=== PATIENT | female | born 1940 | race Caucasian/White ===

== ENCOUNTER 2020-09-03 16:26 | Inpatient (IN) | payer MEDICARE ==
[2020-09-03 17:21] LABS: Bacteria/HPF 2+ HPF (None Seen); Bilirubin Negative (Negative); Blood, Urine 2+ (Negative); Clarity Extra Turbid (Clear); Glucose, Urine (Dipstick) Normal (Negative); Ketone, Urine Negative (Negative); Leukocyte 500 Leu/uL (Negative); Nitrite Negative (Negative); Protein, Urine (Dipstick) 300 mg/dL (Neg-Trace); RBC/HPF None Seen HPF (0-3); Specific Gravity, Urine 1.009 (1.002-1.036); Urobilinogen Normal mg/dL (Less than 2); WBC/HPF Greater than 50 HPF (0-3); pH, Urine 5.5 (5.0-9.0)
[2020-09-03 18:00] LABS: Hemoglobin 11.3 g/dL (12.0-16.0); Mean Corpuscular HGB CONC 33.7 g/dL (32.0-36.0); Mean Corpuscular Hemoglobin 33.8 pg (27.0-31.0); Platelet Count 217 thou/uL (130-400); RBC Distribution Width 12.7 % (11.5-14.5); Red Blood Cell (RBC) Count 3.34 mill/uL (4.20-5.40); White Blood Cell (WBC) Count 23.3 thou/uL (4.8-10.8)
[2020-09-03 18:20] LABS: Band 9 % (5-11); Lymphocytes 4 % (21-51); MDiff Complete? YES; Macrocytosis SLIGHT = 6-15 cells (100X) (0-5/hpf); Monocytes 9 % (0-10); Neutrophil 77 % (42-75); Platelet Morphology Comment Appears Adequate; Reactive Lymphocytes 1 % (0-10)
[2020-09-03 18:22] LABS: ALT (SGPT) 11 U/L (8-55); AST (SGOT) 12 U/L (5-34); Albumin 3.4 g/dL (3.4-4.8); Alkaline Phosphatase 71 U/L (40-110); Anion Gap 17 mmol/L (10-20); BUN (Urea Nitrogen) 102 mg/dL (9.8-20.1); Bilirubin, Total 0.4 mg/dL (0.2-1.2); Calc. Creatinine Clearance 0 mL/min (70-130); Calcium 8.6 mg/dL (7.8-10.44); Carbon Dioxide 28 mmol/L (23-31); Chloride 87 mmol/L (98-107); Globulin 4.1 g/dL (2.4-3.5); Glucose 152 mg/dL (83-110); Potassium 3.1 mmol/L (3.5-5.1); Protein, Total 7.5 g/dL (5.8-8.1); Sodium 129 mmol/L (136-145)
[2020-09-03] MEDS ORDERED: cefTRIAXone\\ROCEPHIN 2 GM VIAL ONE ×2 (18:26→18:27)
[2020-09-03] MEDS ORDERED: Aspirin 300 MG Suppository ONE (18:26)
[2020-09-03 18:35] LABS: INR-International Normal Ratio 1.1; Prothrombin Time 14.7 sec (12.0-14.7)
[2020-09-03 18:36] LABS: PTT 30.2 sec (22.9-36.1)
[2020-09-03 18:42] LABS: CKMB 1.4 ng/mL (0-6.6)
[2020-09-03] MEDS ORDERED: Dextrose 5% in Water 1,000 ML IV PRN (21:37)
[2020-09-03] MEDS ORDERED: Dextrose 50% Abboject 50 ML SYRINGE SLOW IVP PRN (21:37)
[2020-09-03] MEDS ORDERED: HumaLOG 300 UNITS/3 ML VIAL SC PRN (21:37)
[2020-09-03] MEDS ORDERED: Nystatin Powder 15 GM BOT TOP PRN (22:22)
[2020-09-03] MEDS ORDERED: Guaifenesin DM 100-10/5 ML UDCUP PO PRN (22:34)
[2020-09-03] MEDS ORDERED: Ondansetron ODT 4 MG TAB PO PRN (22:34)
[2020-09-03] MEDS ORDERED: Acetaminophen 650 MG Suppository PR PRN (22:34)
[2020-09-03 23:16] LABS: Troponin I 0.039 ng/mL (< 0.028)
[2020-09-03 23:37] VITALS: BMI 36.2
[2020-09-04 02:33] LABS: #Lymphocytes 1.4 thou/uL (1.20-3.40); #Monocytes 1.3 thou/uL (0.11-0.59); #Neutrophils 17.9 thou/uL (1.40-6.50); %Monocytes 6.2 % (0.0-10.0); %Neutrophils 86.8 % (42.0-75.0); Hemoglobin 10.9 g/dL (12.0-16.0); Mean Corpuscular HGB CONC 35.3 g/dL (32.0-36.0); Mean Corpuscular Hemoglobin 35.8 pg (27.0-31.0); Mean Platelet Volume 8.3 fL (7.4-10.4); Platelet Count 196 thou/uL (130-400); RBC Distribution Width 12.8 % (11.5-14.5); Red Blood Cell (RBC) Count 3.04 mill/uL (4.20-5.40); White Blood Cell (WBC) Count 20.6 thou/uL (4.8-10.8)
[2020-09-04 02:56] LABS: Troponin I 0.035 ng/mL (< 0.028)
[2020-09-04 02:57] LABS: Anion Gap 21 mmol/L (10-20); BUN (Urea Nitrogen) 94 mg/dL (9.8-20.1); Calc. Creatinine Clearance 28 mL/min (70-130); Calcium 8.6 mg/dL (7.8-10.44); Carbon Dioxide 22 mmol/L (23-31); Cardiac Risk 4.3 (Less than 4.5); Chloride 90 mmol/L (98-107); Cholesterol 150 mg/dl (< 200 Desired); Glucose 167 mg/dL (83-110); HDL Cholesterol 35 mg/dL (>60 Neg Risk); LDL Cholesterol, Calculated 97 mg/dL; Sodium 130 mmol/L (136-145); Triglycerides 92 mg/dL (Less than 150)
[2020-09-04 03:22] LABS: Potassium 2.5 mmol/L (3.5-5.1)
[2020-09-04] MEDS ORDERED: Electrolyte Replacement Protocol 1 EACH FS PRN ×2 (03:30→03:40)
[2020-09-04] MEDS: Sodium Chloride 0.9% 1,000 ML IV SCH ×2 (03:48→08:45)
[2020-09-04] MEDS: Potassium Chloride 40 MEQ in Sodium Chloride 0.9% 250 ML 250 ML IVPB SCH ×2 (03:59→08:39)
[2020-09-04] MEDS: Levothyroxine Sodium 25 MCG TAB PO SCH (04:24)
[2020-09-04] MEDS: Acetaminophen 325 MG TAB PO PRN ×2 (04:26→11:53)
[2020-09-04] MEDS: Famotidine 20 MG TAB PO SCH (08:38)
[2020-09-04] MEDS: FLUoxetine HCl 20 MG CAP PO SCH (08:38)
[2020-09-04] MEDS: Aspirin Chewable 81 MG TAB PO SCH (08:38)
[2020-09-04] MEDS: Trospium 20 MG TAB PO SCH (08:39)
[2020-09-04] MEDS: Enoxaparin Sodium 30 MG/0.3 ML SYRINGE SC SCH (08:39)
[2020-09-04] MEDS: Primidone 50 MG TAB PO SCH ×2 (08:40→21:18)
[2020-09-04 08:44] LABS: SARS-CoV-2 PCR by NAA Not Detected (NotDetected)
[2020-09-04] MEDS ORDERED: TOPIRAMATE 100 MG PO SCH (09:00)
[2020-09-04] MEDS: Ondansetron PF 4 MG/2 ML Vial IVP PRN (11:52)
[2020-09-04 14:37] LABS: Anion Gap 18 mmol/L (10-20); BUN (Urea Nitrogen) 94 mg/dL (9.8-20.1); Calc. Creatinine Clearance 30 mL/min (70-130); Calcium 8.5 mg/dL (7.8-10.44); Carbon Dioxide 22 mmol/L (23-31); Chloride 95 mmol/L (98-107); Glucose 165 mg/dL (83-110); Potassium 3.6 mmol/L (3.5-5.1); Sodium 131 mmol/L (136-145)
[2020-09-04] MEDS: HumaLOG 300 UNITS/3 ML VIAL SC PRN (17:29)
[2020-09-04] MEDS: cefTRIAXone\\ROCEPHIN 1 GM in Sodium Chloride 0.9% 100 ML IVPB SCH (17:29)
[2020-09-04] MEDS: Simvastatin 40 MG TAB PO SCH (21:17)
[2020-09-05 05:04] LABS: #Eosinphils 0.1 thou/uL (0.0-0.7); #Lymphocytes 1.4 thou/uL (1.20-3.40); #Monocytes 1.1 thou/uL (0.11-0.59); #Neutrophils 12.7 thou/uL (1.40-6.50); %Basophils 0.3 % (0.0-1.0); %Eosinophils 0.4 % (0.0-10.0); %Lymphocytes 8.8 % (21.0-51.0); %Monocytes 7.3 % (0.0-10.0); %Neutrophils 83.3 % (42.0-75.0); Hemoglobin 10.2 g/dL (12.0-16.0); Mean Corpuscular Hemoglobin 34.2 pg (27.0-31.0); Mean Platelet Volume 8.7 fL (7.4-10.4); Platelet Count 210 thou/uL (130-400); RBC Distribution Width 12.7 % (11.5-14.5); Red Blood Cell (RBC) Count 2.97 mill/uL (4.20-5.40); White Blood Cell (WBC) Count 15.3 thou/uL (4.8-10.8)
[2020-09-05 05:24] LABS: Anion Gap 17 mmol/L (10-20); BUN (Urea Nitrogen) 87 mg/dL (9.8-20.1); Calc. Creatinine Clearance 37 mL/min (70-130); Calcium 8.7 mg/dL (7.8-10.44); Carbon Dioxide 23 mmol/L (23-31); Chloride 96 mmol/L (98-107); Glucose 153 mg/dL (83-110); Potassium 3.6 mmol/L (3.5-5.1); Sodium 132 mmol/L (136-145)
[2020-09-05] MEDS: Levothyroxine Sodium 25 MCG TAB PO SCH (05:44)
[2020-09-05] MEDS: HumaLOG 300 UNITS/3 ML VIAL SC PRN (05:58)
[2020-09-05] MEDS: Sodium Chloride 0.9% 1,000 ML IV SCH ×2 (07:33→21:21)
[2020-09-05] MEDS: Aspirin Chewable 81 MG TAB PO SCH (09:45)
[2020-09-05] MEDS: FLUoxetine HCl 20 MG CAP PO SCH (09:45)
[2020-09-05] MEDS: Famotidine 20 MG TAB PO SCH (09:45)
[2020-09-05] MEDS: Trospium 20 MG TAB PO SCH (09:46)
[2020-09-05] MEDS: Primidone 50 MG TAB PO SCH ×2 (09:46→21:21)
[2020-09-05] MEDS: HYDROcodone/Acetaminophen 5/325 mg Tablet PO PRN ×2 (09:49→16:54)
[2020-09-05] MEDS: Enoxaparin Sodium 30 MG/0.3 ML SYRINGE SC SCH (09:51)
[2020-09-05] MEDS: Morphine 2 MG/ML VIAL SLOW IVP PRN (12:29)
[2020-09-05] MEDS: Gabapentin 100 MG CAP PO SCH ×2 (16:54→21:21)
[2020-09-05] MEDS: cefTRIAXone\\ROCEPHIN 1 GM in Sodium Chloride 0.9% 100 ML IVPB SCH (19:38)
[2020-09-05] MEDS: tiZANidine HCl 4 MG TAB PO SCH (21:22)
[2020-09-05] MEDS: Simvastatin 40 MG TAB PO SCH (21:22)
[2020-09-06] MEDS: Levothyroxine Sodium 25 MCG TAB PO SCH (06:21)
[2020-09-06] MEDS: HumaLOG 300 UNITS/3 ML VIAL SC PRN ×2 (06:37→11:07)
[2020-09-06] MEDS: Ondansetron PF 4 MG/2 ML Vial IVP PRN (07:46)
[2020-09-06] MEDS: Primidone 50 MG TAB PO SCH ×2 (08:46→20:47)
[2020-09-06] MEDS: Famotidine 20 MG TAB PO SCH (08:47)
[2020-09-06] MEDS: Trospium 20 MG TAB PO SCH (08:47)
[2020-09-06] MEDS: Aspirin Chewable 81 MG TAB PO SCH (08:47)
[2020-09-06] MEDS: Gabapentin 100 MG CAP PO SCH ×3 (08:47→20:46)
[2020-09-06] MEDS: Enoxaparin Sodium 30 MG/0.3 ML SYRINGE SC SCH (08:48)
[2020-09-06] MEDS: FLUoxetine HCl 20 MG CAP PO SCH (08:48)
[2020-09-06] MEDS: Sodium Chloride 0.9% 1,000 ML IV SCH (10:13)
[2020-09-06] MEDS ORDERED: Lidocaine 1% (PF) 30 ML VIAL ONE (17:04)
[2020-09-06] MEDS: cefTRIAXone\\ROCEPHIN 1 GM in Sodium Chloride 0.9% 100 ML IVPB SCH (18:36)
[2020-09-06 20:01] LABS: RBC Count-Automated (BF) 80909 /cu.mm; WBC/Nucleated-Auto (BF) 8584 uL
[2020-09-06 20:23] LABS: BF Color Red; Body Fluid Source Synovial Fluid; Clarity Cloudy/Turbid (Clear); Tube # EDTA
[2020-09-06 20:25] LABS: BF Segmented Neutrophils 80 %; Cell Count Non Hematic 19 %; Lymphocytes 1 %
[2020-09-06] MEDS: Simvastatin 40 MG TAB PO SCH (20:48)
[2020-09-06] MEDS: tiZANidine HCl 4 MG TAB PO SCH (20:48)
[2020-09-06] MEDS: HYDROcodone/Acetaminophen 5/325 mg Tablet PO PRN (21:04)
[2020-09-07] MEDS: Sodium Chloride 0.9% 1,000 ML IV SCH ×2 (00:35→11:10)
[2020-09-07] MEDS: Acetaminophen 325 MG TAB PO PRN (00:35)
[2020-09-07 04:41] LABS: #Eosinphils 0.2 thou/uL (0.0-0.7); #Lymphocytes 1.7 thou/uL (1.20-3.40); #Monocytes 1.5 thou/uL (0.11-0.59); #Neutrophils 8.4 thou/uL (1.40-6.50); %Basophils 0.2 % (0.0-1.0); %Eosinophils 1.3 % (0.0-10.0); %Lymphocytes 14.5 % (21.0-51.0); %Monocytes 12.8 % (0.0-10.0); %Neutrophils 71.2 % (42.0-75.0); Mean Corpuscular HGB CONC 32.8 g/dL (32.0-36.0); Mean Corpuscular Hemoglobin 34.6 pg (27.0-31.0); Mean Platelet Volume 7.9 fL (7.4-10.4); Platelet Count 247 thou/uL (130-400); RBC Distribution Width 12.7 % (11.5-14.5); Red Blood Cell (RBC) Count 2.91 mill/uL (4.20-5.40); White Blood Cell (WBC) Count 11.8 thou/uL (4.8-10.8)
[2020-09-07 04:57] LABS: Anion Gap 12 mmol/L (10-20); BUN (Urea Nitrogen) 44 mg/dL (9.8-20.1); Calc. Creatinine Clearance 68 mL/min (70-130); Calcium 8.5 mg/dL (7.8-10.44); Carbon Dioxide 26 mmol/L (23-31); Chloride 101 mmol/L (98-107); Glucose 153 mg/dL (83-110); Potassium 3.3 mmol/L (3.5-5.1); Sodium 136 mmol/L (136-145)
[2020-09-07] MEDS: Levothyroxine Sodium 25 MCG TAB PO SCH (06:12)
[2020-09-07] MEDS: HYDROcodone/Acetaminophen 5/325 mg Tablet PO PRN ×2 (07:26→18:17)
[2020-09-07] MEDS: Enoxaparin Sodium 30 MG/0.3 ML SYRINGE SC SCH (08:35)
[2020-09-07] MEDS: Aspirin Chewable 81 MG TAB PO SCH (08:35)
[2020-09-07] MEDS: FLUoxetine HCl 20 MG CAP PO SCH (08:35)
[2020-09-07] MEDS: Trospium 20 MG TAB PO SCH (08:36)
[2020-09-07] MEDS: Famotidine 20 MG TAB PO SCH (08:36)
[2020-09-07] MEDS: Gabapentin 100 MG CAP PO SCH ×3 (08:36→20:36)
[2020-09-07] MEDS: Primidone 50 MG TAB PO SCH ×2 (08:36→20:37)
[2020-09-07] MEDS: Morphine 2 MG/ML VIAL SLOW IVP PRN (11:10)
[2020-09-07] MEDS: HumaLOG 300 UNITS/3 ML VIAL SC PRN (11:11)
[2020-09-07] MEDS: cefTRIAXone\\ROCEPHIN 1 GM in Sodium Chloride 0.9% 100 ML IVPB SCH (18:17)
[2020-09-07] MEDS: tiZANidine HCl 4 MG TAB PO SCH (20:36)
[2020-09-07] MEDS: Simvastatin 40 MG TAB PO SCH (20:37)
[2020-09-08] MEDS: Sodium Chloride 0.9% 1,000 ML IV SCH (02:17)
[2020-09-08 04:51] LABS: #Eosinphils 0.4 thou/uL (0.0-0.7); #Lymphocytes 1.7 thou/uL (1.20-3.40); #Monocytes 1.4 thou/uL (0.11-0.59); %Basophils 0.2 % (0.0-1.0); %Eosinophils 4.2 % (0.0-10.0); %Lymphocytes 15.7 % (21.0-51.0); %Monocytes 13.5 % (0.0-10.0); %Neutrophils 66.4 % (42.0-75.0); Hemoglobin 9.5 g/dL (12.0-16.0); Mean Corpuscular HGB CONC 32.8 g/dL (32.0-36.0); Platelet Count 257 thou/uL (130-400); RBC Distribution Width 12.6 % (11.5-14.5); Red Blood Cell (RBC) Count 2.81 mill/uL (4.20-5.40); White Blood Cell (WBC) Count 10.5 thou/uL (4.8-10.8)
[2020-09-08 05:14] LABS: Anion Gap 14 mmol/L (10-20); BUN (Urea Nitrogen) 28 mg/dL (9.8-20.1); Calc. Creatinine Clearance 95 mL/min (70-130); Calcium 8.4 mg/dL (7.8-10.44); Carbon Dioxide 25 mmol/L (23-31); Chloride 101 mmol/L (98-107); Glucose 132 mg/dL (83-110); Potassium 3.5 mmol/L (3.5-5.1); Sodium 136 mmol/L (136-145)
[2020-09-08] MEDS: Levothyroxine Sodium 25 MCG TAB PO SCH (05:18)
[2020-09-08] MEDS: HYDROcodone/Acetaminophen 5/325 mg Tablet PO PRN ×3 (05:20→17:52)
[2020-09-08] MEDS: Aspirin Chewable 81 MG TAB PO SCH (10:38)
[2020-09-08] MEDS: Famotidine 20 MG TAB PO SCH (10:38)
[2020-09-08] MEDS: Enoxaparin Sodium 30 MG/0.3 ML SYRINGE SC SCH (10:38)
[2020-09-08] MEDS: Gabapentin 100 MG CAP PO SCH ×3 (10:39→20:51)
[2020-09-08] MEDS: FLUoxetine HCl 20 MG CAP PO SCH (10:39)
[2020-09-08] MEDS: Primidone 50 MG TAB PO SCH ×2 (10:42→20:51)
[2020-09-08] MEDS: Trospium 20 MG TAB PO SCH (10:42)
[2020-09-08] MEDS: Senokot S 8.6-50 MG TAB PO PRN (11:45)
[2020-09-08] MEDS: Bisacodyl 10 MG SUPP PR PRN (16:26)
[2020-09-08] MEDS: Simvastatin 40 MG TAB PO SCH (20:51)
[2020-09-08] MEDS: Ciprofloxacin 500 MG TAB PO SCH (20:51)
[2020-09-08] MEDS: tiZANidine HCl 4 MG TAB PO SCH (21:03)
[2020-09-09] MEDS: Ciprofloxacin 500 MG TAB PO SCH ×2 (05:59→20:36)
[2020-09-09] MEDS: Levothyroxine Sodium 25 MCG TAB PO SCH (05:59)
[2020-09-09] MEDS: Gabapentin 100 MG CAP PO SCH ×3 (08:24→20:37)
[2020-09-09] MEDS: Famotidine 20 MG TAB PO SCH (08:26)
[2020-09-09] MEDS: Trospium 20 MG TAB PO SCH (08:26)
[2020-09-09] MEDS: FLUoxetine HCl 20 MG CAP PO SCH (08:26)
[2020-09-09] MEDS: Aspirin Chewable 81 MG TAB PO SCH (08:26)
[2020-09-09] MEDS: Enoxaparin Sodium 30 MG/0.3 ML SYRINGE SC SCH (08:27)
[2020-09-09] MEDS: Primidone 50 MG TAB PO SCH ×2 (10:01→20:38)
[2020-09-09] MEDS: HYDROcodone/Acetaminophen 5/325 mg Tablet PO PRN (13:40)
[2020-09-09] MEDS ORDERED: Furosemide 40 MG TAB PO SCH (19:00)
[2020-09-09] MEDS ORDERED: Losartan 25 MG TAB PO SCH (19:00)
[2020-09-09] MEDS: tiZANidine HCl 4 MG TAB PO SCH (20:36)
[2020-09-09] MEDS: hydrALAZINE 25 MG TAB PO SCH (20:36)
[2020-09-09] MEDS: Simvastatin 40 MG TAB PO SCH (20:38)
[2020-09-10] MEDS: Senokot S 8.6-50 MG TAB PO PRN ×2 (05:42→20:55)
[2020-09-10] MEDS: Levothyroxine Sodium 25 MCG TAB PO SCH (05:42)
[2020-09-10] MEDS: Ciprofloxacin 500 MG TAB PO SCH ×2 (05:42→20:39)
[2020-09-10] MEDS: Losartan 25 MG TAB PO SCH (07:55)
[2020-09-10] MEDS: FLUoxetine HCl 20 MG CAP PO SCH (07:56)
[2020-09-10] MEDS: Trospium 20 MG TAB PO SCH (07:56)
[2020-09-10] MEDS: Amlodipine 10 MG TAB PO SCH (07:57)
[2020-09-10] MEDS: Famotidine 20 MG TAB PO SCH (07:57)
[2020-09-10] MEDS: Gabapentin 100 MG CAP PO SCH ×3 (07:57→20:38)
[2020-09-10] MEDS: hydrALAZINE 25 MG TAB PO SCH ×3 (07:58→20:39)
[2020-09-10] MEDS: Enoxaparin Sodium 30 MG/0.3 ML SYRINGE SC SCH (07:58)
[2020-09-10] MEDS: Aspirin Chewable 81 MG TAB PO SCH (07:58)
[2020-09-10] MEDS ORDERED: Furosemide 80 MG TAB PO SCH (09:00)
[2020-09-10] MEDS ORDERED: Mag-Al 1200 mg/1200 mg/30 ML UDCUP PO PRN (09:40)
[2020-09-10] MEDS ORDERED: Mag-Al 1200 mg/1200 mg/30 ML UDCUP PO SCH (09:45)
[2020-09-10] MEDS: Primidone 50 MG TAB PO SCH ×2 (10:01→20:37)
[2020-09-10] MEDS: Furosemide 40 MG TAB PO SCH (10:01)
[2020-09-10] MEDS: HYDROcodone/Acetaminophen 5/325 mg Tablet PO PRN ×2 (13:45→20:40)
[2020-09-10] MEDS: tiZANidine HCl 4 MG TAB PO SCH (20:36)
[2020-09-10] MEDS: Simvastatin 40 MG TAB PO SCH (20:55)
[2020-09-10] MEDS: Morphine 2 MG/ML VIAL SLOW IVP PRN (22:52)
[2020-09-11] MEDS: Ciprofloxacin 500 MG TAB PO SCH ×2 (06:05→21:58)
[2020-09-11] MEDS: Levothyroxine Sodium 25 MCG TAB PO SCH (06:05)
[2020-09-11] MEDS: Bisacodyl 10 MG SUPP PR PRN (06:11)
[2020-09-11] MEDS: Trospium 20 MG TAB PO SCH (08:43)
[2020-09-11] MEDS: Primidone 50 MG TAB PO SCH ×2 (08:43→21:59)
[2020-09-11] MEDS: Gabapentin 100 MG CAP PO SCH ×3 (08:44→21:57)
[2020-09-11] MEDS: FLUoxetine HCl 20 MG CAP PO SCH (08:44)
[2020-09-11] MEDS: Losartan 25 MG TAB PO SCH (08:44)
[2020-09-11] MEDS: Enoxaparin Sodium 30 MG/0.3 ML SYRINGE SC SCH (08:45)
[2020-09-11] MEDS: hydrALAZINE 25 MG TAB PO SCH ×3 (08:45→21:59)
[2020-09-11] MEDS: Furosemide 40 MG TAB PO SCH (08:45)
[2020-09-11] MEDS: Amlodipine 10 MG TAB PO SCH (08:45)
[2020-09-11] MEDS: Aspirin Chewable 81 MG TAB PO SCH (08:45)
[2020-09-11 13:39] LABS: SARS-CoV-2 NAA Rapid Test Not Detected (NotDetected)
[2020-09-11] MEDS: HYDROcodone/Acetaminophen 5/325 mg Tablet PO PRN (14:02)
[2020-09-11] MEDS: tiZANidine HCl 4 MG TAB PO SCH (21:57)
[2020-09-11] MEDS: Simvastatin 40 MG TAB PO SCH (21:59)
[2020-09-12] MEDS: Levothyroxine Sodium 25 MCG TAB PO SCH (06:12)
[2020-09-12] MEDS: Ciprofloxacin 500 MG TAB PO SCH (06:12)
[2020-09-12 07:10] VITALS: BP 144/82; TEMP 98.2
[2020-09-12] MEDS: Trospium 20 MG TAB PO SCH (07:50)
[2020-09-12] MEDS: Enoxaparin Sodium 30 MG/0.3 ML SYRINGE SC SCH (07:50)
[2020-09-12] MEDS: Aspirin Chewable 81 MG TAB PO SCH (07:50)
[2020-09-12] MEDS: Gabapentin 100 MG CAP PO SCH (07:50)
[2020-09-12] MEDS: FLUoxetine HCl 20 MG CAP PO SCH (07:51)
[2020-09-12] MEDS: Amlodipine 10 MG TAB PO SCH (07:51)
[2020-09-12] MEDS: Furosemide 40 MG TAB PO SCH (07:51)
[2020-09-12] MEDS: hydrALAZINE 25 MG TAB PO SCH (07:52)
[2020-09-12] MEDS: Losartan 25 MG TAB PO SCH (07:52)
== END 2020-09-12 09:13 | DRG 871 ==
LOC: ERS 16:26 → 2NO 19:47 → OBSVTOIN 09-04 10:45 → T4-A 09-09 19:48
PROVIDERS: ADMIT Student in an Organized Health Care Education/Training Program; ATTEND Internal Medicine
PROC: 0S9D3ZX Drainage of Left Knee Joint, Percutaneous Approach, Diagnostic (ICD-10-PCS; principal; 2020-09-06)
PROC: 0T9B70Z Drainage of Bladder with Drainage Device, Via Natural or Artificial Opening (ICD-10-PCS; 2020-09-06)
DX: A41.9 Sepsis, unspecified organism (principal); G93.41 Metabolic encephalopathy; N30.00 Acute cystitis without hematuria; N17.9 Acute kidney failure, unspecified; E87.1 Hypo-osmolality and hyponatremia; I50.32 Chronic diastolic (congestive) heart failure; Z20.822 Contact with and (suspected) exposure to COVID-19; R65.20 Severe sepsis without septic shock; R77.8 Other specified abnormalities of plasma proteins; E87.6 Hypokalemia; E03.9 Hypothyroidism, unspecified; E11.42 Type 2 diabetes mellitus with diabetic polyneuropathy; F32.9 Major depressive disorder, single episode, unspecified; M54.9 Dorsalgia, unspecified; G89.29 Other chronic pain; I50.9 Heart failure, unspecified; I11.0 Hypertensive heart disease with heart failure; M25.462 Effusion, left knee; E66.9 Obesity, unspecified; M10.9 Gout, unspecified; R33.9 Retention of urine, unspecified; Z28.21 Immunization not carried out because of patient refusal; Z85.41 Personal history of malignant neoplasm of cervix uteri; Z79.899 Other long term (current) drug therapy; Z79.890 Hormone replacement therapy; Z79.84 Long term (current) use of oral hypoglycemic drugs; Z90.13 Acquired absence of bilateral breasts and nipples; Z90.710 Acquired absence of both cervix and uterus; Z68.36 Body mass index [BMI] 36.0-36.9, adult
CPT/HCPCS: 36415; 36416; 51701; 70450; 71045; 74176; 80048; 80053; 80061; 81003; 81015; 82553; 82945; 83605; 83735; 83880; 84157; 84443; 84484; 85025; 85060; 85610; 85730; 87040; 87070; 87077; 87086; 87186; 87205; 87635; 89051; 89060; 93005; 93306; 94760; 96365; 96372; G0378; J0696; J1650; J1815; J2001; J2270; J2405; J3480; J3490; J7050; U0002; U0003; U0005

== ENCOUNTER 2025-02-27 18:12 | Inpatient (IN) | payer MEDICARE ==
[~2025-02-27 18:12] MED LIST: Iopamidol 370 76% 100 ML VIAL ONE
[2025-02-27 18:54] LABS: Bacteria/HPF 4+ HPF (None Seen); CAUTI Indications for Culture Dysuria,urgency,freq; RBC/HPF 21-50 HPF (0-3); WBC/HPF Greater than 50 HPF (0-3)
[2025-02-27 18:56] LABS: Glucose, Urine (Dipstick) Negative (Negative); Leukocyte Moderate (Negative); Protein, Urine (Dipstick) > or equal to 300 mg/dL (Neg-Trace); Specific Gravity, Urine 1.025 (1.005-1.030)
[2025-02-27 18:56] LABS: #Basophils 0.05 10x3/uL (0.0-0.2); #Eosinophils Less than 0.03 10x3/uL (0.0-0.7); #Monocytes 1.58 10x3/uL (0.11-0.59); #Neutrophils 12.98 10x3/uL (1.40-6.50); %Basophils 0.3 % (0.0-1.0); %Eosinophils 0.0 % (0.0-10.0); %Lymphocytes 7.7 % (21.0-51.0); %Monocytes 9.9 % (0.0-10.0); %Neutrophils 81.5 % (42.0-75.0); Hematocrit 38.7 % (36.0-47.0); Hemoglobin 13.3 g/dL (12.0-16.0); Mean Corpuscular Hemoglobin 33.4 pg (27.0-31.0); Mean Corpuscular Volume 97.2 fL (78.0-98.0); Platelet Count 198 10x3/uL (130-400); Red Blood Cell (RBC) Count 3.98 mill/uL (4.20-5.40); White Blood Cell (WBC) Count 15.93 10x3/uL (4.8-10.8)
[2025-02-27 18:57] LABS: Urine Culture Reflex Yes Yes
[2025-02-27 18:57] LABS: Actual Bicarbonate (HCO3v) 24.1 mEq/L (22-28); Base Excess -0.4 mEq/L (-2.0 to +3.0); Calcium, Ionized (venous) 1.03 mmol/L (1.16-1.32); Chloride (VBG) 98 mmol/L (98-106); Hematocrit-VBG 42 % (36.0-47.0); Hemoglobin (Hb) 14.4 g/dL (11.7-16.1); Potassium (VBG) 3.79 mmol/L (3.70-5.30); Sodium 137 mmol/L (133-146)
[2025-02-27] MEDS ORDERED: cefTRIAXone (ROCEPHIN) 2 GM VIAL ONE (19:08)
[2025-02-27 19:18] LABS: ALT (SGPT) 12 U/L (Less than 34); AST (SGOT) 26 U/L (11-34); Albumin 3.3 g/dL (3.1-4.5); Alkaline Phosphatase 111 U/L (40-110); Anion Gap 15 mmol/L (10-20); BUN (Urea Nitrogen) 21 mg/dL (9.8-20.1); Bilirubin, Total 0.8 mg/dL (0.3-1.2); CK (CPK) 46 U/L (29-168); Calc. Creatinine Clearance 0 mL/min (70-130); Calcium 8.4 mg/dL (7.8-10.44); Carbon Dioxide 26 mmol/L (23-31); Chloride 102 mmol/L (98-107); Globulin 4.1 g/dL (2.4-3.5); Glucose 264 mg/dL (83-110); Lipase 10 U/L (8-78); Potassium 3.8 mmol/L (3.5-5.1); Sodium 139 mmol/L (136-145)
[2025-02-27 19:33] LABS: Magnesium 0.9 mg/dL (1.6-2.6)
[2025-02-27] MEDS ORDERED: Magnesium 2 GM/50 ML BAG (IN WATER) ONE (20:10)
[2025-02-27] MEDS ORDERED: Furosemide 20 MG (2 mL) VIAL ONE (20:11)
[2025-02-27] MEDS ORDERED: Azithromycin 500 MG VIAL ONE (21:50)
[2025-02-27] MEDS ORDERED: VANCOMYCIN 2 GRAM/400 ML BAG ONE (22:27)
[2025-02-27] MEDS ORDERED: Ondansetron PF 4 MG/2 ML Vial IVP PRN (22:46)
[2025-02-27 23:59] LABS: Magnesium 1.7 mg/dL (1.6-2.6)
[2025-02-28 00:07] VITALS: BMI 39.8
[2025-02-28] MEDS: Furosemide 20 MG (2 mL) VIAL SLOW IVP SCH (05:21)
[2025-02-28 05:46] LABS: #Basophils 0.04 10x3/uL (0.0-0.2); #Eosinophils Less than 0.03 10x3/uL (0.0-0.7); #Monocytes 1.18 10x3/uL (0.11-0.59); #Neutrophils 12.40 10x3/uL (1.40-6.50); %Basophils 0.3 % (0.0-1.0); %Eosinophils 0.0 % (0.0-10.0); %Lymphocytes 8.8 % (21.0-51.0); %Monocytes 7.8 % (0.0-10.0); %Neutrophils 82.5 % (42.0-75.0); Hematocrit 39.2 % (36.0-47.0); Hemoglobin 12.8 g/dL (12.0-16.0); Mean Corpuscular Hemoglobin 32.5 pg (27.0-31.0); Mean Corpuscular Volume 99.5 fL (78.0-98.0); Platelet Count 184 10x3/uL (130-400); Red Blood Cell (RBC) Count 3.94 mill/uL (4.20-5.40); White Blood Cell (WBC) Count 15.04 10x3/uL (4.8-10.8)
[2025-02-28 06:19] LABS: Anion Gap 17 mmol/L (10-20); BUN (Urea Nitrogen) 24 mg/dL (9.8-20.1); Calc. Creatinine Clearance 47 mL/min (70-130); Calcium 8.6 mg/dL (7.8-10.44); Carbon Dioxide 28 mmol/L (23-31); Chloride 101 mmol/L (98-107); Glucose 164 mg/dL (83-110); Magnesium 1.6 mg/dL (1.6-2.6); Potassium 3.8 mmol/L (3.5-5.1); Sodium 142 mmol/L (136-145)
[2025-02-28 06:20] LABS: Vancomycin, Random 31.1 ug/mL (See Comment)
[2025-02-28] MEDS ORDERED: Dextrose 50% Abboject 50 ML SYRINGE SLOW IVP PRN (08:09)
[2025-02-28] MEDS: Colestipol 1 GM TAB PO SCH (14:10)
[2025-02-28] MEDS: Allopurinol 100 MG TAB PO SCH (14:10)
[2025-02-28] MEDS: Bupropion 150 MG SR.TAB PO SCH (14:10)
[2025-02-28] MEDS: Heparin 5,000 UNITS/ML VIAL SC SCH (14:22)
[2025-02-28] MEDS: Primidone 250 MG TAB PO SCH (14:36)
[2025-02-28] MEDS ORDERED: Electrolyte Replacement Protocol 1 EACH FS PRN (18:15)
[2025-02-28] MEDS: Acetaminophen 325 MG TAB PO PRN (20:30)
[2025-02-28] MEDS: Magnesium 2 GM/50 ML(in water) 2 GM in Premix 1 BAG IVPB SCH (20:36)
[2025-03-01 04:53] LABS: #Basophils 0.03 10x3/uL (0.0-0.2); #Eosinophils 0.08 10x3/uL (0.0-0.7); #Monocytes 1.02 10x3/uL (0.11-0.59); #Neutrophils 6.60 10x3/uL (1.40-6.50); %Basophils 0.3 % (0.0-1.0); %Eosinophils 0.9 % (0.0-10.0); %Lymphocytes 15.1 % (21.0-51.0); %Monocytes 11.1 % (0.0-10.0); %Neutrophils 72.2 % (42.0-75.0); Hematocrit 38.6 % (36.0-47.0); Hemoglobin 12.4 g/dL (12.0-16.0); Mean Corpuscular Hemoglobin 32.6 pg (27.0-31.0); Mean Corpuscular Volume 101.6 fL (78.0-98.0); Platelet Count 170 10x3/uL (130-400); Red Blood Cell (RBC) Count 3.80 mill/uL (4.20-5.40); White Blood Cell (WBC) Count 9.15 10x3/uL (4.8-10.8)
[2025-03-01 05:35] LABS: Anion Gap 15 mmol/L (10-20); BUN (Urea Nitrogen) 25 mg/dL (9.8-20.1); Calc. Creatinine Clearance 56 mL/min (70-130); Calcium 8.4 mg/dL (7.8-10.44); Carbon Dioxide 27 mmol/L (23-31); Chloride 99 mmol/L (98-107); Glucose 169 mg/dL (83-110); Magnesium 2.0 mg/dL (1.6-2.6); Potassium 3.5 mmol/L (3.5-5.1); Sodium 137 mmol/L (136-145)
[2025-03-01] MEDS: Metoprolol Succinate XL 100 MG ER.TAB PO SCH (10:45)
[2025-03-01] MEDS: Magnesium 2 GM/50 ML(in water) 2 GM in Premix 1 BAG IVPB SCH (10:46)
[2025-03-01] MEDS: Senokot S 8.6-50 MG TAB PO SCH (21:33)
[2025-03-02 05:11] LABS: #Basophils 0.03 10x3/uL (0.0-0.2); #Eosinophils 0.27 10x3/uL (0.0-0.7); #Monocytes 0.76 10x3/uL (0.11-0.59); #Neutrophils 3.12 10x3/uL (1.40-6.50); %Basophils 0.5 % (0.0-1.0); %Eosinophils 4.7 % (0.0-10.0); %Lymphocytes 26.6 % (21.0-51.0); %Monocytes 13.3 % (0.0-10.0); %Neutrophils 54.6 % (42.0-75.0); Hematocrit 35.2 % (36.0-47.0); Hemoglobin 11.5 g/dL (12.0-16.0); Mean Corpuscular Hemoglobin 32.5 pg (27.0-31.0); Mean Corpuscular Volume 99.4 fL (78.0-98.0); Platelet Count 172 10x3/uL (130-400); Red Blood Cell (RBC) Count 3.54 mill/uL (4.20-5.40); White Blood Cell (WBC) Count 5.72 10x3/uL (4.8-10.8)
[2025-03-02 05:54] LABS: Anion Gap 13 mmol/L (10-20); BUN (Urea Nitrogen) 18 mg/dL (9.8-20.1); Calc. Creatinine Clearance 74 mL/min (70-130); Calcium 8.2 mg/dL (7.8-10.44); Carbon Dioxide 28 mmol/L (23-31); Chloride 101 mmol/L (98-107); Glucose 176 mg/dL (83-110); Magnesium 1.7 mg/dL (1.6-2.6); Potassium 3.6 mmol/L (3.5-5.1); Sodium 138 mmol/L (136-145)
[2025-03-02] MEDS: Magnesium 2 GM/50 ML(in water) 2 GM in Premix 1 BAG IVPB SCH (09:11)
[2025-03-02] MEDS ORDERED: E-Z-HD 98% W/W 340GM BOT (x-ray ONLY) ONE (09:30)
[2025-03-02] MEDS ORDERED: Barium Sulfate 96% 176 GM BOT (xray ONLY) ONE (09:30)
[2025-03-03 06:19] LABS: Magnesium 1.6 mg/dL (1.6-2.6)
[2025-03-03] MEDS: Magnesium 2 GM/50 ML(in water) 2 GM in Premix 1 BAG IVPB SCH (09:56)
[2025-03-03] MEDS: cloNIDine 0.1 MG TAB PO PRN (12:57)
[2025-03-04 06:20] LABS: Magnesium 1.5 mg/dL (1.6-2.6)
[2025-03-04] MEDS: Magnesium 2 GM/50 ML(in water) 2 GM in Premix 1 BAG IVPB SCH (09:21)
[2025-03-04 10:05] LABS: #Basophils 0.04 10x3/uL (0.0-0.2); #Eosinophils 0.38 10x3/uL (0.0-0.7); #Monocytes 0.79 10x3/uL (0.11-0.59); #Neutrophils 4.17 10x3/uL (1.40-6.50); %Basophils 0.6 % (0.0-1.0); %Eosinophils 5.6 % (0.0-10.0); %Lymphocytes 20.4 % (21.0-51.0); %Monocytes 11.6 % (0.0-10.0); %Neutrophils 61.4 % (42.0-75.0); Hematocrit 39.3 % (36.0-47.0); Hemoglobin 13.2 g/dL (12.0-16.0); Mean Corpuscular Hemoglobin 32.8 pg (27.0-31.0); Mean Corpuscular Volume 97.8 fL (78.0-98.0); Platelet Count 188 10x3/uL (130-400); Red Blood Cell (RBC) Count 4.02 mill/uL (4.20-5.40); White Blood Cell (WBC) Count 6.80 10x3/uL (4.8-10.8)
[2025-03-04 10:32] LABS: Anion Gap 15 mmol/L (10-20); BUN (Urea Nitrogen) 17 mg/dL (9.8-20.1); Calc. Creatinine Clearance 87 mL/min (70-130); Calcium 8.7 mg/dL (7.8-10.44); Carbon Dioxide 24 mmol/L (23-31); Chloride 96 mmol/L (98-107); Glucose 248 mg/dL (83-110); Potassium 4.0 mmol/L (3.5-5.1); Sodium 131 mmol/L (136-145)
[2025-03-04] MEDS: cefTRIAXone\\ROCEPHIN 1 GM in Sodium Chloride 0.9% 100 ML IVPB SCH (11:02)
[2025-03-04 18:03] VITALS: BMI 40.7
[2025-03-05 05:54] LABS: #Basophils 0.04 10x3/uL (0.0-0.2); #Eosinophils 0.57 10x3/uL (0.0-0.7); #Monocytes 0.82 10x3/uL (0.11-0.59); #Neutrophils 3.63 10x3/uL (1.40-6.50); %Basophils 0.6 % (0.0-1.0); %Eosinophils 8.1 % (0.0-10.0); %Lymphocytes 27.3 % (21.0-51.0); %Monocytes 11.7 % (0.0-10.0); %Neutrophils 51.6 % (42.0-75.0); Hematocrit 38.3 % (36.0-47.0); Hemoglobin 12.7 g/dL (12.0-16.0); Mean Corpuscular Hemoglobin 32.8 pg (27.0-31.0); Mean Corpuscular Volume 99.0 fL (78.0-98.0); Platelet Count 196 10x3/uL (130-400); Red Blood Cell (RBC) Count 3.87 mill/uL (4.20-5.40); White Blood Cell (WBC) Count 7.03 10x3/uL (4.8-10.8)
[2025-03-05 06:07] LABS: Anion Gap 14 mmol/L (10-20); BUN (Urea Nitrogen) 18 mg/dL (9.8-20.1); Calc. Creatinine Clearance 80 mL/min (70-130); Calcium 8.4 mg/dL (7.8-10.44); Carbon Dioxide 23 mmol/L (23-31); Chloride 98 mmol/L (98-107); Glucose 181 mg/dL (83-110); Potassium 3.7 mmol/L (3.5-5.1); Sodium 131 mmol/L (136-145)
[2025-03-05 09:21] VITALS: TEMP 97.5
[2025-03-05 12:52] VITALS: BP 155/78
[2025-03-05] MEDS: Losartan 25 MG TAB PO SCH (14:03)
[2025-03-06] MEDS ORDERED: Losartan 25 MG TAB PO SCH (09:00)
== END 2025-03-05 14:48 | disposition swing bed (61) | DRG 682 ==
LOC: ERS 18:12 → 2NO 21:39 → T4-B 03-03 17:49
PROVIDERS: ADMIT Internal Medicine; ATTEND Internal Medicine
DX: N17.9 Acute kidney failure, unspecified (principal); G93.41 Metabolic encephalopathy; J96.01 Acute respiratory failure with hypoxia; I50.33 Acute on chronic diastolic (congestive) heart failure; N12 Tubulo-interstitial nephritis, not specified as acute or chronic; E78.5 Hyperlipidemia, unspecified; I11.0 Hypertensive heart disease with heart failure; E11.9 Type 2 diabetes mellitus without complications; Z79.899 Other long term (current) drug therapy; Z87.891 Personal history of nicotine dependence; E83.42 Hypomagnesemia
CPT/HCPCS: 36415; 36416; 51701; 71045; 71275; 74177; 74220; 74230; 80048; 80053; 80202; 81001; 82550; 82805; 83605; 83690; 83735; 83880; 84443; 84484; 85025; 87040; 87077; 87086; 87186; 87426; 93005; 93306; 96365; 96366; 96367; 96375; J0456; J0696; J1644; J1940; J2185; J3373; J3375; J3475; J7030; J7050; Q9967

== ENCOUNTER 2025-04-03 13:59 | Inpatient (IN) | payer MEDICARE ==
[2025-04-03] MEDS ORDERED: Ondansetron PF 4 MG/2 ML Vial IVP PRN (15:57)
[2025-04-03] MEDS: Acetaminophen 325 MG TAB PO PRN (16:25)
[2025-04-03 16:48] VITALS: BMI 35.9
[2025-04-03] MEDS: Famotidine/PF 20 mg/2ml Vial SLOW IVP SCH (23:03)
[2025-04-04] MEDS: Ketorolac Tromethamine 30 MG (1 mL) VIAL IVP SCH (00:15)
[2025-04-04] MEDS: VANCOMYCIN 2 GRAM/400 ML Premix BAG IVPB SCH (03:16)
[2025-04-04 04:05] LABS: #Basophils 0.05 10x3/uL (0.0-0.2); #Eosinophils Less than 0.03 10x3/uL (0.0-0.7); #Monocytes 1.50 10x3/uL (0.11-0.59); #Neutrophils 10.13 10x3/uL (1.40-6.50); %Basophils 0.4 % (0.0-1.0); %Eosinophils 0.1 % (0.0-10.0); %Lymphocytes 14.5 % (21.0-51.0); %Monocytes 10.9 % (0.0-10.0); %Neutrophils 73.4 % (42.0-75.0); Hematocrit 34.6 % (36.0-47.0); Hemoglobin 11.6 g/dL (12.0-16.0); Mean Corpuscular Hemoglobin 33.6 pg (27.0-31.0); Mean Corpuscular Volume 100.3 fL (78.0-98.0); Platelet Count 196 10x3/uL (130-400); Red Blood Cell (RBC) Count 3.45 mill/uL (4.20-5.40); White Blood Cell (WBC) Count 13.79 10x3/uL (4.8-10.8)
[2025-04-04 04:19] LABS: Anion Gap 17 mmol/L (10-20); BUN (Urea Nitrogen) 36 mg/dL (9.8-20.1); Calc. Creatinine Clearance 47 mL/min (70-130); Calcium 8.8 mg/dL (7.8-10.44); Carbon Dioxide 25 mmol/L (23-31); Cardiac Risk 3.0 (Less than 4.5); Chloride 98 mmol/L (98-107); Cholesterol 158 mg/dl (< 200 Desired); Glucose 174 mg/dL (83-110); HDL Cholesterol 52 mg/dL (>60 Neg Risk); LDL Cholesterol, Calculated 87 mg/dL; Potassium 3.5 mmol/L (3.5-5.1); Sodium 136 mmol/L (136-145); Triglycerides 96 mg/dL (Less than 150)
[2025-04-04] MEDS: Mometasone 100 MCG/Formoterol 5 MCG 120 PUFF INHALER INH SCH (06:53)
[2025-04-04] MEDS: Potassium Chloride 20 MEQ in Premix 1 BAG IVPB SCH (08:43)
[2025-04-04] MEDS: Enoxaparin 40 MG (0.4 mL) SYRINGE SC SCH (08:44)
[2025-04-04] MEDS ORDERED: Aspirin 81 mg Enteric Coated Tablet PO SCH (09:00)
[2025-04-04] MEDS: Allopurinol 100 MG TAB PO SCH (09:22)
[2025-04-04] MEDS: Bupropion 150 MG SR.TAB PO SCH (09:22)
[2025-04-04 15:25] LABS: Potassium 4.0 mmol/L (3.5-5.1)
[2025-04-05 04:12] LABS: #Basophils 0.03 10x3/uL (0.0-0.2); #Eosinophils 0.20 10x3/uL (0.0-0.7); #Monocytes 1.45 10x3/uL (0.11-0.59); #Neutrophils 7.53 10x3/uL (1.40-6.50); %Basophils 0.3 % (0.0-1.0); %Eosinophils 1.8 % (0.0-10.0); %Lymphocytes 15.9 % (21.0-51.0); %Monocytes 13.2 % (0.0-10.0); %Neutrophils 68.3 % (42.0-75.0); Hematocrit 31.6 % (36.0-47.0); Hemoglobin 10.4 g/dL (12.0-16.0); Mean Corpuscular Hemoglobin 33.5 pg (27.0-31.0); Mean Corpuscular Volume 101.9 fL (78.0-98.0); Platelet Count 180 10x3/uL (130-400); Red Blood Cell (RBC) Count 3.10 mill/uL (4.20-5.40); White Blood Cell (WBC) Count 11.02 10x3/uL (4.8-10.8)
[2025-04-05 04:20] LABS: Anion Gap 17 mmol/L (10-20); BUN (Urea Nitrogen) 41 mg/dL (9.8-20.1); Calc. Creatinine Clearance 51 mL/min (70-130); Calcium 8.5 mg/dL (7.8-10.44); Carbon Dioxide 24 mmol/L (23-31); Chloride 99 mmol/L (98-107); Glucose 148 mg/dL (83-110); Potassium 3.6 mmol/L (3.5-5.1); Sodium 136 mmol/L (136-145)
[2025-04-05] MEDS: Famotidine/PF 20 mg/2ml Vial SLOW IVP SCH (09:56)
[2025-04-05] MEDS: Primidone 250 MG TAB PO SCH (16:39)
[2025-04-05] MEDS: Nystatin Powder 15 GM BOT TOP SCH (21:12)
[2025-04-05] MEDS: Senokot S 8.6-50 MG TAB PO SCH (21:13)
[2025-04-06 03:55] LABS: #Basophils 0.03 10x3/uL (0.0-0.2); #Eosinophils 0.16 10x3/uL (0.0-0.7); #Monocytes 0.97 10x3/uL (0.11-0.59); #Neutrophils 4.71 10x3/uL (1.40-6.50); %Basophils 0.4 % (0.0-1.0); %Eosinophils 2.2 % (0.0-10.0); %Lymphocytes 19.1 % (21.0-51.0); %Monocytes 13.3 % (0.0-10.0); %Neutrophils 64.6 % (42.0-75.0); Hematocrit 31.9 % (36.0-47.0); Hemoglobin 10.4 g/dL (12.0-16.0); Mean Corpuscular Hemoglobin 32.7 pg (27.0-31.0); Mean Corpuscular Volume 100.3 fL (78.0-98.0); Platelet Count 192 10x3/uL (130-400); Red Blood Cell (RBC) Count 3.18 mill/uL (4.20-5.40); White Blood Cell (WBC) Count 7.29 10x3/uL (4.8-10.8)
[2025-04-06 04:07] LABS: Anion Gap 13 mmol/L (10-20); BUN (Urea Nitrogen) 31 mg/dL (9.8-20.1); Calc. Creatinine Clearance 60 mL/min (70-130); Calcium 8.8 mg/dL (7.8-10.44); Carbon Dioxide 25 mmol/L (23-31); Chloride 100 mmol/L (98-107); Glucose 168 mg/dL (83-110); Potassium 3.3 mmol/L (3.5-5.1); Sodium 135 mmol/L (136-145)
[2025-04-06] MEDS: Heparin 5,000 UNITS/ML VIAL SC SCH (09:25)
[2025-04-06] MEDS: Metoprolol Succinate XL 100 MG ER.TAB PO SCH (09:26)
[2025-04-06] MEDS: Lisinopril 20 MG TAB PO SCH (09:27)
[2025-04-06] MEDS: Aspirin 81 mg Enteric Coated Tablet PO SCH (09:52)
[2025-04-06] MEDS ORDERED: Dextrose 50% Abboject 50 ML SYRINGE SLOW IVP PRN (14:05)
[2025-04-06] MEDS ORDERED: Glucagon 1 MG/ML KIT IM PRN (14:05)
[2025-04-07] MEDS: Aspirin 81 mg Enteric Coated Tablet PO SCH (09:18)
[2025-04-08 12:05] LABS: #Basophils 0.03 10x3/uL (0.0-0.2); #Eosinophils 0.28 10x3/uL (0.0-0.7); #Monocytes 0.80 10x3/uL (0.11-0.59); #Neutrophils 5.09 10x3/uL (1.40-6.50); %Basophils 0.4 % (0.0-1.0); %Eosinophils 3.7 % (0.0-10.0); %Lymphocytes 17.2 % (21.0-51.0); %Monocytes 10.6 % (0.0-10.0); %Neutrophils 67.4 % (42.0-75.0); Hematocrit 32.6 % (36.0-47.0); Hemoglobin 10.9 g/dL (12.0-16.0); Mean Corpuscular Hemoglobin 33.6 pg (27.0-31.0); Mean Corpuscular Volume 100.6 fL (78.0-98.0); Platelet Count 184 10x3/uL (130-400); Red Blood Cell (RBC) Count 3.24 mill/uL (4.20-5.40); White Blood Cell (WBC) Count 7.55 10x3/uL (4.8-10.8)
[2025-04-08 12:32] LABS: Anion Gap 14 mmol/L (10-20); BUN (Urea Nitrogen) 17 mg/dL (9.8-20.1); Calc. Creatinine Clearance 97 mL/min (70-130); Calcium 8.9 mg/dL (7.8-10.44); Carbon Dioxide 27 mmol/L (23-31); Chloride 101 mmol/L (98-107); Glucose 164 mg/dL (83-110); Potassium 3.7 mmol/L (3.5-5.1); Sodium 138 mmol/L (136-145)
[2025-04-08 16:40] VITALS: TEMP 98.2
[2025-04-08] MEDS: hydrALAZINE 20 MG/ML VIAL SLOW IVP PRN (17:49)
[2025-04-08 17:52] VITALS: BP 198/111
== END 2025-04-08 19:05 | disposition home or self-care (01) | DRG 871 ==
LOC: PCU 15:42
PROVIDERS: ADMIT Family Medicine; ATTEND Internal Medicine
DX: A41.52 Sepsis due to Pseudomonas (principal); G93.41 Metabolic encephalopathy; I50.32 Chronic diastolic (congestive) heart failure; N39.0 Urinary tract infection, site not specified; Z16.24 Resistance to multiple antibiotics; I13.0 Hypertensive heart and chronic kidney disease with heart failure and stage 1 through stage 4 chronic kidney disease, or unspecified chronic kidney disease; N17.9 Acute kidney failure, unspecified; Z66 Do not resuscitate; R65.20 Severe sepsis without septic shock; E78.5 Hyperlipidemia, unspecified; F03.90 Unspecified dementia, unspecified severity, without behavioral disturbance, psychotic disturbance, mood disturbance, and anxiety; E03.9 Hypothyroidism, unspecified; E11.22 Type 2 diabetes mellitus with diabetic chronic kidney disease; N18.30 Chronic kidney disease, stage 3 unspecified; B96.5 Pseudomonas (aeruginosa) (mallei) (pseudomallei) as the cause of diseases classified elsewhere; F32.A Depression, unspecified; Z96.653 Presence of artificial knee joint, bilateral; Z85.3 Personal history of malignant neoplasm of breast; Z88.1 Allergy status to other antibiotic agents; Z91.048 Other nonmedicinal substance allergy status; Z90.13 Acquired absence of bilateral breasts and nipples; Z98.890 Other specified postprocedural states; Z87.891 Personal history of nicotine dependence; Z86.73 Personal history of transient ischemic attack (TIA), and cerebral infarction without residual deficits; Z79.890 Hormone replacement therapy
CPT/HCPCS: 36415; 36416; 70551; 71045; 80048; 80061; 85025; 86141; 87040; 93880; J0360; J0692; J1644; J1650; J1885; J2543; J3375; J3480